=== PATIENT | female | born 1945 | race Caucasian/White ===

== ENCOUNTER → 2017-09-04 | Outpatient (CLI) | payer MEDICARE ==
[2017-09-05 14:23] LABS: Appearance,Urine Cloudy (Clear); Bilirubin,Urine Negative (Negative); Blood,Urine Small (Negative); Glucose,Urine (UA) Negative (Negative); Ketones,Urine Negative (Negative); Leukocyte Esterase,Urine Large (Negative); Mucus,Urine Rare /hpf; Nitrite,Urine Negative (Negative); PH, Urine 7.5 (5.0-8.0); Protein,Urine 1+ (Negative); RBC,Urine 24 /hpf (0-5); Urobilinogen,Urine <2.0 mg/dL (<2.0); WBC,Urine 22 /hpf (0-5)
[2017-09-18 08:11] LABS: Color,Urine Yellow
== END | disposition home or self-care (01) ==
LOC: LABWHC1 13:37
PROVIDERS: ATTEND General Practice
DX: N39.0 Urinary tract infection, site not specified (principal)
CPT/HCPCS: 81001; 87077; 87086; 87186

== ENCOUNTER 2018-11-30 21:46 | Emergency (ER) | payer MEDICARE ==
[2018-11-30 21:56] VITALS: RESP 18
[2018-11-30] MEDS ORDERED: methylPREDNISolone SOD SUCCI 125 MG/2 ML VIAL IV STA (22:38)
[2018-11-30] MEDS ORDERED: diphenhydrAMINE 50 MG/ML 1 ML VIAL IVP STA (22:38)
[2018-11-30] MEDS ORDERED: FAMOTIDINE 20 MG/2 ML VIAL IV STA (22:38)
--- NOTE | 2018-12-01 00:34 | ED ---
Allergic Reaction HPI - General Chief complaint: Allergic Reaction Stated complaint: Itchy hands Time Seen by Provider: 11/30/18 22:21 Source: patient, EMS Mode of arrival: EMS Limitations: no limitations - History of Present Illness Initial Comments: 73-year-old female patient presents to the emergency department today for evaluation of possible ALLERGIC reaction. Patient states around 9:30 this evening she began to have bilateral hand itching, tongue swelling, and periorbital swelling. Patient states that symptoms seemed to be worsening so she called EMS for transport here. Patient states that about a half an hour prior to symptom onset she did eat a banana. States she has had many bananas in her life with no reaction. She does state that she had to stop using Musa catheters due to latex. She denies taking any medication for her symptoms. She denies any shortness of breath, throat swelling, abdominal pain. Denies vomiting or diarrhea. Denies history of ALLERGIC reaction. Patient denies any recent rash, fever, chills, chest pain, constipation, back pain, numbness, tingling, dizziness, weakness, hematuria, dysuria, urinary urgency, urinary frequency, headache, visual changes, or any other complaints. - Related Data Home Medications Medication Instructions Recorded Confirmed Aspirin 81 mg PO DAILY 05/13/15 05/13/15 Baclofen [Lioresal] 20 mg PO QID 05/13/15 05/13/15 Furosemide [Lasix] 40 mg PO DAILY 05/16/15 05/16/15 Glatiramer Acetate [Copaxone] 40 mg SQ DIRECTED 05/16/15 05/16/15 Previous Rx's Medication Instructions Recorded Folic Acid 1 mg PO DAILY@1200 #30 tab 05/17/15 Insulin Glargine,Hum.rec.anlog 50 units SQ HS #0 05/17/15 [Lantus Solostar] Levofloxacin [Levaquin] 750 mg PO DAILY #5 tab 05/17/15 Multivitamins, Thera [Multivitamin 1 each PO DAILY@1200 #30 tab 05/17/15 (formulary)] Thiamine [Vitamin B-1] 100 mg PO DAILY@1200 #30 tab 05/17/15 Famotidine [Pepcid] 20 mg PO DAILY #3 tablet 12/01/18 predniSONE 50 mg PO DAILY #3 tab 12/01/18 Allergies Allergy/AdvReac Type Severity Reaction Status Date / Time No Known Allergies Allergy Verified 11/30/18 21:56 Review of Systems ROS Statement: Those systems with pertinent positive or pertinent negative responses have been documented in the HPI. ROS Other: All systems not noted in ROS Statement are negative. Past Medical History Past Medical History: Diabetes Mellitus, Hypertension, Musculoskeletal Disorder, Neurologic Disorder, Osteoarthritis (OA), Pneumonia, Skin Disorder Additional Past Medical History / Comment(s): 05/13/15 Pt presented to [facility] ER via EMS with syncopy vs near syncopy at home witnessed by spouse who called EMS. By the time EMS got there symptoms pretty much were resolved. Pt's sugar was slightly low. Pt is being admitted with clinical impression of AMS, UTI and syncopy. Other HX: MS, atonic bladder-self caths but lately just leaving catheter in place, IDDM type II, pneumonia 2010, psoriasis, stasis dematitis, osteoporosis, fatty liver, occasional lower leg edema. History of Any Multi-Drug Resistant Organisms: None Reported Past Surgical History: Appendectomy, Cholecystectomy, Tubal Ligation Past Anesthesia/Blood Transfusion Reactions: No Reported Reaction Past Psychological History: No Psychological Hx Reported Smoking Status: Former smoker Past Alcohol Use History: None Reported Past Drug Use History: None Reported - Past Family History Mother Family Medical History: Coronary Artery Disease (CAD) Additional Family Medical History / Comment(s): Mother had heart problems and at age 79. Father Family Medical History: No Reported History Additional Family Medical History / Comment(s): Father lived to be 105. General Exam Limitations: no limitations General appearance: alert, in no apparent distress, other (This is a well- developed, well-nourished elderly female patient in no acute distress. Vital signs upon presentation are temperature 98.0F, pulse 96, respirations 18, blood pressure 121/89, pulse ox 96% on room air.) Eye exam: Present: PERRL, EOMI, periorbital swelling. Absent: scleral icterus, conjunctival injection ENT exam: Present: normal oropharynx, mucous membranes moist, other (Tongue swelling. No uvular or pharyngeal edema noted). Absent: normal exam Neck exam: Present: normal inspection. Absent: tenderness, meningismus, lymphadenopathy Respiratory exam: Present: normal lung sounds bilaterally. Absent: respiratory distress, wheezes, rales, rhonchi, stridor Cardiovascular Exam: Present: regular rate, normal rhythm, normal heart sounds. Absent: systolic murmur, diastolic murmur, rubs, gallop, clicks GI/Abdominal exam: Present: soft, normal bowel sounds. Absent: distended, tenderness, guarding, rebound, rigid Extremities exam: Present: normal inspection, full ROM, normal capillary refill. Absent: tenderness, pedal edema, joint swelling, calf tenderness Neurological exam: Present: alert, oriented X3, CN II-XII intact Psychiatric exam: Present: normal affect, normal mood Skin exam: Present: warm, dry, intact, normal color. Absent: rash Course Vital Signs 11/30/18 11/30/18 12/01/18 21:52 22:52 00:55 Temperature 98.0 F 98.2 F Pulse Rate 96 74 85 Respiratory 18 18 18 Rate Blood Pressure 121/89 122/71 O2 Sat by Pulse 96 97 98 Oximetry 12/01/18 01:17 Temperature 98.0 F Pulse Rate 99 Respiratory 18 Rate Blood Pressure 136/96 O2 Sat by Pulse 98 Oximetry Medical Decision Making - Medical Decision Making 73-year-old female patient presents to the emergency department today for evaluation of possible ALLERGIC reaction. Symptoms included periorbital swelling, tongue swelling, and hand itching. Physical examination did reveal periorbital edema, enlarged tongue. Hand exam was unremarkable. Lungs are clear to auscultation with good air movement. She is not having abdominal pain or shortness of breath. She was given IV Solu-Medrol, Benadryl, and Pepcid. She is monitored. Upon reevaluation she does report improvement of symptoms. She does feel comfortable being discharged home at this time. She'll be given prescription for prednisone and Pepcid. She is instructed take Benadryl every 6 hours as needed. She is instructed to follow-up with her primary care physician for recheck Sunday. Return parameters were discussed in detail. She verbalizes understanding and agrees with this plan. Disposition Clinical Impression: Allergic reaction Disposition: HOME SELF-CARE Condition: Good Instructions (If sedation given, give patient instructions): General Allergic Reaction (ED) Additional Instructions: Complete medications as directed. Your prescriptions were sent to [facility] on [address] Take benadryl 25-50mg every 6 hours as needed. Follow-up with your primary care physician for recheck in 1-2 days. Return to the emergency department immediately for any new, worsening, or concerning symptoms. Prescriptions: Famotidine [Pepcid] 20 mg PO DAILY #3 tablet predniSONE 50 mg PO DAILY #3 tab Is patient prescribed a controlled substance at d/c from ED?: No Referrals: Sam Song MD [Primary Care Provider] - 1-2 days Time of Disposition: 00:34
[2018-12-01 01:18] VITALS: BP 136/96; PULSE 99; TEMP 98
== END 2018-12-01 01:18 | disposition home or self-care (01) ==
LOC: EC 21:46
DX: T78.40XA Allergy, unspecified, initial encounter (principal); L29.9 Pruritus, unspecified; R22.0 Localized swelling, mass and lump, head; I10 Essential (primary) hypertension; E11.9 Type 2 diabetes mellitus without complications; Z79.82 Long term (current) use of aspirin; Z79.899 Other long term (current) drug therapy; Z87.891 Personal history of nicotine dependence
CPT/HCPCS: 99283; 96374; 96375 ×2; J1200; J2930

== ENCOUNTER 2023-03-09 12:35 | Inpatient (IN) | payer MEDICARE ==
[2023-03-09] MEDS ORDERED: SODIUM CHLORIDE 0.9% 1,000 ML IV STA (12:59)
[2023-03-09] MEDS ORDERED: HYDROmorphone 0.5 MG/0.5 ML SYRINGE IVP STA (12:59)
[2023-03-09 13:26] LABS: HCT 36.8 % (34.0-46.0); HGB 12.9 gm/dL (11.4-16.0); MCH 33.4 pg (25.0-35.0); MCHC 35.1 g/dL (31.0-37.0); MCV 95.3 fL (80.0-100.0); Mean Platelet Volume 7.6; Platelet Count 262 k/uL (150-450); RBC 3.87 m/uL (3.80-5.40); RDW 11.9 % (11.5-15.5); WBC 9.9 k/uL (3.8-10.6)
--- NOTE | 2023-03-09 13:39 | ED ---
Skin/Abscess/FB HPI - General Chief complaint: Skin/Abscess/Foreign Body Stated complaint: FOOT WOUND Time Seen by Provider: 03/09/23 12:52 Source: patient, EMS, RN notes reviewed Mode of arrival: EMS Limitations: no limitations - History of Present Illness Initial comments: Patient is a 77 year old female presenting to the ER via EMS with a chief compla int of foot wound. Patient reports a history of MS and DM. She states she noticed this wound on her left heel about 1 week ago. Denies any trauma or blisters. She woke up about 4 days ago and noticed it was bleeding. Patient has been unable to get the bleeding under control since. She reports multiple blisters on the calfs. Denies fevers, chills, nightswerats, chest pain, shortness of breath, or abdominal pain. - Related Data Home Medications Medication Instructions Recorded Confirmed Baclofen [Lioresal] 20 mg PO QID PRN 05/13/15 03/09/23 Aspirin EC [Ecotrin Low Dose] 81 mg PO DAILY 03/09/23 03/09/23 Atorvastatin [Lipitor] 10 mg PO DAILY 03/09/23 03/09/23 Cyanocobalamin (Vitamin B-12) 1,000 mcg PO DAILY 03/09/23 03/09/23 [Vitamin B-12] Docusate [Colace] 100 mg PO DAILY 03/09/23 03/09/23 HYDROcodone/APAP 5-325MG [[place] 1 tab PO Q6H PRN 03/09/23 03/09/23 5-325] Insulin Glargine,Hum.rec.anlog 18 units SQ HS PRN 03/09/23 03/09/23 [Lantus Solostar Pen] Allergies Allergy/AdvReac Type Severity Reaction Status Date / Time No Known Allergies Allergy Verified 03/09/23 15:49 Review of Systems ROS Statement: Those systems with pertinent positive or pertinent negative responses have been documented in the HPI. ROS Other: All systems not noted in ROS Statement are negative. Past Medical History Past Medical History: Diabetes Mellitus, Hypertension, Musculoskeletal Disorder, Neurologic Disorder, Osteoarthritis (OA), Pneumonia, Skin Disorder Additional Past Medical History / Comment(s): 05/13/15 Pt presented to [facility] ER via EMS with syncopy vs near syncopy at home witnessed by spouse who called EMS. By the time EMS got there symptoms pretty much were resolved. Pt's sugar was slightly low. Pt is being admitted with clinical impression of AMS, UTI and s yncopy. Other HX: MS, atonic bladder-self caths but lately just leaving catheter in place, IDDM type II, pneumonia 2010, psoriasis, stasis dematitis, osteoporosis, fatty liver, occasional lower leg edema. History of Any Multi-Drug Resistant Organisms: None Reported Past Surgical History: Appendectomy, Cholecystectomy, Tubal Ligation Past Anesthesia/Blood Transfusion Reactions: No Reported Reaction Past Psychological History: No Psychological Hx Reported Smoking Status: Former smoker Past Alcohol Use History: None Reported Past Drug Use History: None Reported - Past Family History Mother Family Medical History: Coronary Artery Disease (CAD) Additional Family Medical History / Comment(s): Mother had heart problems and at age 79. Father Family Medical History: No Reported History Additional Family Medical History / Comment(s): Father lived to be 105. General Exam Limitations: no limitations General appearance: alert, in no apparent distress Respiratory exam: Present: normal lung sounds bilaterally. Absent: respiratory distress, wheezes, rales, rhonchi, stridor Cardiovascular Exam: Present: regular rate, normal rhythm, normal heart sounds. Absent: systolic murmur, diastolic murmur, rubs, gallop, clicks Extremities exam: Present: other (bleeding heel wound on right with surrounding erythema and induration. 1+ pitting edema bilaterally. left calf has multiple superficial blisters ) Neurological exam: Present: alert, oriented X3, CN II-XII intact Psychiatric exam: Present: normal affect, normal mood Skin exam: Present: warm, dry, intact, normal color. Absent: rash Course Vital Signs 03/09/23 12:38 Temperature 97.6 F Pulse Rate 104 H Respiratory 18 Rate Blood Pressure 144/74 O2 Sat by Pulse 100 Oximetry Medical Decision Making - Medical Decision Making Was pt. sent in by a medical professional or institution (, PA, [facility], urgent care, hospital, or correction...) When possible be specific @ -No Did you speak to anyone other than the patient for history (EMS, parent, family, police, friend...)? What history was obtained from this source @ -No Did you review nursing and triage notes (agree or disagree)? Why? @ -I reviewed and agree with nursing and triage notes Were old charts reviewed (outside hosp., previous admission, EMS record, old EKG, old radiological studies, urgent care reports/EKG's, correction records)? Report findings @ -No old charts were reviewed Differential Diagnosis (chest pain, altered mental status, abdominal pain women, abdominal pain men, vaginal bleeding, weakness, fever, dyspnea, syncope, headache, dizziness, GI bleed, back pain, seizure, CVA, palpatations, mental health, musculoskeletal)? @ -Differential Musculoskeletal: Muscular strain, contusion, ligament sprain, fracture, arthritis, septic arthritis, bursitis, cellulitis, muscle spasm, nerve compression, DVT, arterial occlusion, herpes zoster, electrolyte abnormality, tumor.... This is not meant to be in all inclusive list EKG interpreted by me (3pts min.). @ -None X-rays interpreted by me (1pt min.). @ -Right foot x-ray interpreted by me shows early minimal cortical erosion of calcaneous. Osteoporosis. CT interpreted by me (1pt min.). @ -None done U/S interpreted by me (1pt. min.). @ -None done What testing was considered but not performed or refused? (CT, X-rays, U/S, labs)? Why? @ -None What meds were considered but not given or refused? Why? @ -None Did you discuss the management of the patient with other professionals (professionals i.e. , PA, [facility]EC[facility] GROWER, lab, RT, psych nurse, social services designee, crime laboratory analyst, teacher, training and development officer, case managers)? Give summary @ -Yes, I discussed this case with Dr. Nava who accepted medical admission. He advised ID and vascular consultation. Was smoking cessation discussed for >3mins.? @ -No Was critical care preformed (if so, how long)? @ -No Were there social determinants of health that impacted care today? How? (Home lessness, low income, unemployed, alcoholism, drug addiction, transportation, low edu. Level, literacy, decrease access to med. care, alf, rehab)? @ -No Was there de-escalation of care discussed even if they declined (Discuss DNR or withdrawal of care, Hospice)? DNR status @ -No What co-morbidities impacted this encounter? (DM, HTN, Smoking, COPD, CAD, Cancer, CVA, ARF, Chemo, Hep., AIDS, mental health diagnosis, sleep apnea, morbid obesity)? @ -DM and MS Was patient admitted / discharged? Hospital course, mention meds given and route, prescriptions, significant lab abnormalities, going to OR and other pertinent info. @ -Admitted. Patient is a 77 year old female presenting to the ER via EMS with a chief complaint of heel wound. Vitals stable. Patient had an actively bleeding wound to right heel with surrounding erythema and induration. Lower extremity was warm to touch. Labs obtained in the ER were unremarkable. X-ray of right foot is showing concerns for osteomyelitis. Patient received IV fluids and pain medication for symptom control with improvement. I discussed lab and imaging findings with the patient. Dr. Nava evaluated patient at bedside and accepted medical admission. Patient will be started on IV Unasyn. ID and vascular consult. Patient will be admitted for further care. Patient expressed understanding and agreement with care Undiagnosed new problem with uncertain prognosis? @ -No Drug Therapy requiring intensive monitoring for toxicity (Heparin, Nitro, Insulin, Cardizem)? @ -No Were any procedures done? @ -No Diagnosis/symptom? @ -Heel wound/osteomyelitis Acute, or Chronic, or Acute on Chronic? @ -Acute Uncomplicated (without systemic symptoms) or Complicated (systemic symptoms)? @ -Uncomplicated Side effects of treatment? @ -No Exacerbation, Progression, or Severe Exacerbation? @ -No Poses a threat to life or bodily function? How? (Chest pain, USA, ID, pneumonia, PE, COPD, DKA, ARF, appy, cholecystitis, CVA, Diverticulitis, Homicidal, Suicidal, threat to staff... and all critical care pts) @ -No - Lab Data Result diagrams: 03/09/23 13:06 03/09/23 13:06 Lab Results 03/09/23 03/09/23 03/09/23 Range/Units 13:06 13:06 13:06 WBC 9.9 (3.8-10.6) k/uL RBC 3.87 (3.80-5.40) m/uL Hgb 12.9 (11.4-16.0) gm/dL Hct 36.8 (34.0-46.0) % MCV 95.3 (80.0-100.0) fL MCH 33.4 (25.0-35.0) pg MCHC 35.1 (31.0-37.0) g/dL RDW 11.9 (11.5-15.5) % Plt Count 262 (150-450) k/uL MPV 7.6 Sodium 137 (137-145) mmol/L Potassium 4.0 (3.5-5.1) mmol/L Chloride 97 L (98-107) mmol/L Carbon Dioxide 27 (22-30) mmol/L Anion Gap 13 mmol/L BUN 28 H (7-17) mg/dL Creatinine 0.52 (0.52-1.04) mg/dL Est GFR (CKD-EPI)AfAm >90 (>60 ml/min/1.73 sqM) Est GFR (CKD-EPI)NonAf >90 (>60 ml/min/1.73 sqM) Glucose 299 H (74-99) mg/dL Plasma Lactic Acid Yohannes 1.6 (0.7-2.0) mmol/L Calcium 8.9 (8.4-10.2) mg/dL Total Bilirubin 0.7 (0.2-1.3) mg/dL AST 24 (14-36) U/L ALT 18 (4-34) U/L Alkaline Phosphatase 77 (38-126) U/L Total Protein 7.0 (6.3-8.2) g/dL Albumin 3.6 (3.5-5.0) g/dL - Radiology Data Radiology results: report reviewed, image reviewed Disposition Clinical Impression: Osteomyelitis, Open wound of heel Disposition: ADMITTED IP TO THIS [facility] Condition: Stable Time of Disposition: 15:12
[2023-03-09 13:41] LABS: ALT 18 U/L (4-34); AST 24 U/L (14-36); African American GFR (CKD) >90 (>60 ml/min/1.73 sqM); Albumin 3.6 g/dL (3.5-5.0); Alkaline Phosphatase 77 U/L (38-126); Anion Gap 13 mmol/L; Blood Urea Nitrogen 28 mg/dL (7-17); Calcium 8.9 mg/dL (8.4-10.2); Carbon Dioxide 27 mmol/L (22-30); Chloride 97 mmol/L (98-107); Glucose 299 mg/dL (74-99); Non-African American GFR(CKD) >90 (>60 ml/min/1.73 sqM); Sodium 137 mmol/L (137-145); Total Bilirubin 0.7 mg/dL (0.2-1.3)
--- NOTE | 2023-03-09 14:06 | XR ---
EXAMINATION TYPE: XR foot complete RT DATE OF EXAM: 03/09/2023 COMPARISON: None HISTORY: Wound on heel TECHNIQUE: 3 view right foot FINDINGS: Structures are osteoporotic. No displaced fractures are evident. Radiopaque densities over the plantar aspect of the foot. Prominent soft tissue swelling is present. There is some poor visuali zation of the cortex at the inferior anterior calcaneus. Early osteomyelitis is not excluded this lev el. Three-phase bone scan could be performed for suspicion suspicion of osteomyelitis. IMPRESSION: 1. No acute fractures evident. 2. Early minimal cortical erosion of the anterior cortex is not excluded. Early osteomyelitis should be considered. 3. Osteoporosis
[2023-03-09] MEDS ORDERED: NALOXONE 0.4 MG/ML 1 ML VIAL IV PRN (14:59)
[2023-03-09] MEDS ORDERED: AMPICILLIN-SULBACTAM 3 GM in SODIUM CHLORIDE 0.9% 100 ML IVPB STA (15:02)
[2023-03-09] MEDS ORDERED: METOCLOPRAMIDE 5 MG/ML 2 ML VIAL IVP STA (15:02)
[2023-03-09] MEDS: SODIUM CHLORIDE 0.9% 1,000 ML IV SCH (16:14)
[2023-03-09] MEDS: HYDROmorphone 0.5 MG/0.5 ML SYRINGE IVP PRN (20:31)
[2023-03-09] MEDS ORDERED: NON FORMULARY DRUG (Insulin Glargine,Hum.Rec.Anlog [Lantus Solostar Pen] 100 UNIT/ML Each) SQ PRN (20:52)
[2023-03-09] MEDS ORDERED: DEXTROSE 50% SYRINGE 50 ML IVP PRN ×2 (20:53)
--- NOTE | 2023-03-09 21:22 | P.CONS ---
History of Present Illness - Reason for Consult Consult date: 03/09/23 Osteomyelitis Requesting physician: Blanca Hurley - Chief Complaint Heel wound x days - History of Present Illness Patient is a 77-year-old female with a past medical history significant for diabetes mellitus hypertension MS, osteoarthritis patient has been brought into the ER by the EMS when they were called into the hospital for the patient having a wound on her right heel apparently this has been getting worse for the last 1 week patient has complaining of increasing pain swelling redness to the right heel that has been extending to the right foot area apparently started with a blister and noticed to having some bleeding with the symptoms the patient was brought into the hospital on arrival to the ER the patient was afebrile and the patient denies having any fever or chills patient was not not hypoxic or hypotensive mild tachycardia white count of 9.9 creatinine 0.52 electrolytes were normal liver enzymes are normal patient did have a x-ray of the foot no acute fractures minimal cortical erosion of the anterior cortex is noted question of osteomyelitis patient got a dose of Unasyn admitted to hospital infectious disease was consulted for further management of antibiotic therapy Review of Systems Positive point and negatives has been mentioned in the HPI, complete review of systems was performed and all other systems are negative Past Medical History Past Medical History: Diabetes Mellitus, Hypertension, Musculoskeletal Disorder, Neurologic Disorder, Osteoarthritis (OA), Pneumonia, Skin Disorder Additional Past Medical History / Comment(s): 05/13/15 Pt presented to [facility] ER via EMS with syncopy vs near syncopy at home witnessed by spouse who called EMS. By the time EMS got there symptoms pretty much were resolved. Pt's sugar was slightly low. Pt is being admitted with clinical impression of AMS, UTI and syncopy. Other HX: MS, atonic bladder-self caths but lately just leaving catheter in place, IDDM type II, pneumonia 2010, psoriasis, stasis dematitis, osteoporosis, fatty liver, occasional lower leg edema. History of Any Multi-Drug Resistant Organisms: None Reported Past Surgical History: Appendectomy, Cholecystectomy, Tubal Ligation Past Anesthesia/Blood Transfusion Reactions: No Reported Reaction Past Psychological History: No Psychological Hx Reported Smoking Status: Former smoker Past Alcohol Use History: None Reported Past Drug Use History: None Reported - Past Family History Mother Family Medical History: Coronary Artery Disease (CAD) Additional Family Medical History / Comment(s): Mother had heart problems and at age 79. Father Family Medical History: No Reported History Additional Family Medical History / Comment(s): Father lived to be 105. Medications and Allergies Home Medications Medication Instructions Recorded Confirmed Type Baclofen [Lioresal] 20 mg PO QID PRN 05/13/15 03/09/23 History Aspirin EC [Ecotrin Low Dose] 81 mg PO DAILY 03/09/23 03/09/23 History Atorvastatin [Lipitor] 10 mg PO DAILY 03/09/23 03/09/23 History Cyanocobalamin (Vitamin B-12) 1,000 mcg PO DAILY 03/09/23 03/09/23 History [Vitamin B-12] Docusate [Colace] 100 mg PO DAILY 03/09/23 03/09/23 History HYDROcodone/APAP 5-325MG [[place] 1 tab PO Q6H PRN 03/09/23 03/09/23 History 5-325] Insulin Glargine,Hum.rec.anlog 18 units SQ HS PRN 03/09/23 03/09/23 History [Lantus Solostar Pen] Amoxic-Pot Clav 875-125Mg 1 tab PO Q12HR 7 Days #14 tab 03/14/23 Rx [Augmentin 875-125] Sulfamethox-Tmp 800-160Mg [Bactrim 1 tab PO Q12HR 7 Days #14 tab 03/14/23 Rx DS 800-160 mg] Allergies Allergy/AdvReac Type Severity Reaction Status Date / Time No Known Allergies Allergy Verified 03/09/23 15:49 Physical Exam Vitals: Vital Signs Temp Pulse Resp BP Pulse Ox 03/09/23 12:38 97.6 F 104 H 18 144/74 100 Intake and Output 03/09/23 03/09/23 03/09/23 06:59 14:59 22:59 Other: Weight 77.111 kg GENERAL DESCRIPTION: Elderly female lying in bed, no distress. No tachypnea or accessory muscle of respiration use. HEENT: Shows Pallor , no scleral icterus. Oral mucous membrane is dry. No pharyngeal erythema or thrush NECK: Trachea central, no thyromegaly. LUNGS: Unlabored breathing. Clear to auscultation anteriorly. No wheeze or crackle. HEART: S1, S2, regular rate and rhythm. No loud murmur ABDOMEN: Soft, no tenderness , guarding or rigidity, no organomegaly EXTREMITIES: Right heel wound did have an area of skin necrosis with surrounding swelling redness but no foul-smelling drainage SKIN: No rash, no masses palpable. NEUROLOGICAL: The patient is awake, alert, oriented x3, mood and affect normal. Results CBC & Chem 7: 03/12/23 08:36 03/12/23 08:36 Labs: Abnormal Lab Results - Last 24 Hours (Table) 03/09/23 Range/Units 13:06 Chloride 97 L (98-107) mmol/L BUN 28 H (7-17) mg/dL Glucose 299 H (74-99) mg/dL Assessment and Plan (1) Cellulitis of right heel Status: Acute Code(s): L03.115 - CELLULITIS OF RIGHT LOWER LIMB SNOMED Code(s): 20605970 (2) Open wound of heel Status: Acute Code(s): S91.309A - UNSPECIFIED OPEN WOUND, UNSPECIFIED FOOT, INITIAL ENCOUNTER SNOMED Code(s): 621146702 Plan: 1patient was in the hospital with worsening wound to the right heel area which is more likely a pressure ulcer unstageable at this time necrotic tissue and s urrounding redness concerning for secondary cellulitis with the x-ray showing some cortical erosion however did not mention the bones where there was calcaneus or a different 1 and extremity to be reviewed with radiologist 2-we will check inflammatory markers 3-local wound care with [facility] followed by moist dressing change daily 4-Unasyn 3 g every 6 hours while awaiting further workup to be completed 5keep the area of the pressure We will follow on clinical condition and cultures to further adjust medication if needed Thank you for this consultation we will follow the patient along with you Dictation was produced using [employer] dictation software. please excuse any grammatical, word or spelling errors. Time with Patient: Greater than 30
[2023-03-09 22:22] LABS: Glucose,Whole Blood 189 mg/dL (70-110)
--- NOTE | 2023-03-09 22:26 | HP ---
HISTORY AND PHYSICAL CHIEF COMPLAINT: Pain and swelling of the right heel. HISTORY OF PRESENT ILLNESS: This is a 77-year-old woman with a past medical history of multiple medical problems including diabetes mellitus, multiple sclerosis, noted to have right heel redness and ulcer and wound also. The wound started about 1 week ago, and there was some bleeding about 4 days ago and the patient came to [facility], was admitted for further evaluation and treatment. X-ray showed suspicion of osteomyelitis. PAST MEDICAL HISTORY: Diabetes mellitus, multiple sclerosis. Rest of the chart and rest of the history is also reviewed. HOME MEDICATIONS: Reviewed include prednisone. Doses reviewed. ALLERGIES: None. FAMILY HISTORY: History of coronary artery disease in the family. SOCIAL HISTORY: Previous history of smoking. The patient is wheelchair-bound. REVIEW OF SYSTEMS: A 14-point review is negative except as mentioned earlier. PHYSICAL EXAMINATION: VITAL SIGNS: Pulse is 104, blood pressure 140/76, respirations 18. HEENT: Conjunctivae normal. NECK: No JVD. CARDIOVASCULAR: S1, S2. RESPIRATIONS: Breath sounds diminished at the bases. ABDOMEN: Soft. LEGS: Significant erythema and tenderness in the necrotic area of the skin of the right heel present. NERVOUS SYSTEM: Diffusely weak with some contractures. SKIN: As mentioned earlier. LABORATORY DATA: Reviewed. ASSESSMENT: 1. Right heel wound diabetic ulcer and possible rule out osteomyelitis. 2. Multiple sclerosis with complications with contractures. 3. Diabetes mellitus, type 2. 4. Hypertension. 5. History of degenerative joint disease. 6. History of pneumonia. 7. Multiple complex medical issues. RECOMMENDATIONS AND DISCUSSION: This is a 77-year-old woman, who presented with multiple complex medical issues, we will monitor the patient closely. I will initiate broad-spectrum IV antibiotics in the form of Unasyn. Otherwise, Vascular and Infectious Disease evaluation, possible debridement. DVT prophylaxis. Obtain cultures. Recommend repeat labs and I would also recommend bone scan to complete the workup. Further recommendations to follow. See orders for further details. MMODL / IJN: [id number] /
[2023-03-09] MEDS: HEPARIN SODIUM,PORCINE 5,000 UNIT/ML 1 ML VIAL SQ SCH (22:28)
[2023-03-09] MEDS: INSULIN ASPART (NovoLOG) 100 UNIT/ML VIAL SQ SCH (22:28)
[2023-03-09] MEDS: HYDROcodone/APAP 5-325MG 1 EACH TAB PO PRN (22:28)
[2023-03-10] MEDS: BACLOFEN 10 MG TAB PO PRN ×2 (00:49→22:06)
[2023-03-10] MEDS: AMPICILLIN-SULBACTAM 3 GM in SODIUM CHLORIDE 0.9% 100 ML IVPB SCH ×4 (00:49→17:30)
[2023-03-10] MEDS: HYDROmorphone 0.5 MG/0.5 ML SYRINGE IVP PRN (02:30)
[2023-03-10] MEDS: SODIUM CHLORIDE 0.9% 1,000 ML IV SCH ×2 (06:45→17:42)
[2023-03-10 07:07] LABS: Glucose,Whole Blood 165 mg/dL (70-110)
[2023-03-10] MEDS: HYDROcodone/APAP 5-325MG 1 EACH TAB PO PRN (07:15)
[2023-03-10] MEDS: INSULIN ASPART (NovoLOG) 100 UNIT/ML VIAL SQ SCH ×4 (07:16→21:23)
[2023-03-10] MEDS: HEPARIN SODIUM,PORCINE 5,000 UNIT/ML 1 ML VIAL SQ SCH ×2 (09:07→21:36)
[2023-03-10] MEDS: ATORVASTATIN 10 MG TAB PO SCH (09:07)
[2023-03-10] MEDS: CYANOCOBALAMIN 500 MCG TAB PO SCH (09:07)
[2023-03-10] MEDS: DOCUSATE 100 MG CAP PO SCH (09:07)
[2023-03-10 10:12] LABS: Basophils # (A) 0.04 X 10*3/uL (0.00-0.10); Basophils % (A) 0.6 %; Eosinophils # (A) 0.12 X 10*3/uL (0.04-0.35); Eosinophils % (A) 1.7 %; HCT 32.1 % (37.2-46.3); HGB 10.4 g/dL (12.0-15.0); Lymphocytes # (A) 1.78 X 10*3/uL (0.90-5.00); Lymphocytes % (A) 25.6 %; MCH 31.5 pg (27.0-32.0); MCHC 32.4 g/dL (32.0-37.0); MCV 97.3 FL (80.0-97.0); Monocytes # (A) 0.84 X 10*3/uL (0.20-1.00); Monocytes % (A) 12.1 %; NRBC Per 100 WBC 0 X 10*3/uL (0.00-0.01); Neutrophils # (A) 4.16 X 10*3/uL (1.80-7.70); Neutrophils % (A) 59.9 %; Platelet Count 226 X 10*3/uL (140-440); WBC 6.95 X 10*3/uL (4.50-10.00)
[2023-03-10 10:19] LABS: Blood Urea Nitrogen 20.8 mg/dL (9.0-27.0); Chloride 106 mmol/L (96-109); Glucose 188 mg/dL (70-110); Potassium 3.7 mmol/L (3.5-5.5); Sodium 137 mmol/L (135-145)
[2023-03-10 10:20] LABS: Carbon Dioxide 23.8 mmol/L (21.6-31.8)
[2023-03-10 11:27] LABS: Glucose,Whole Blood 282 mg/dL (70-110)
[2023-03-10 13:57] VITALS: BMI 30.1
--- NOTE | 2023-03-10 14:45 | P.PN ---
Subjective Progress Note Date: 03/10/23 Patient is a 77-year-old female with a past medical history significant for diabetes mellitus hypertension MS, osteoarthritis patient has been brought into the ER by the EMS for evaluation of nonhealing wound to the right heel and bleeding. Patient did have x-ray of the foot concerning for mini mal cortical erosion of the anterior cortex did not mention the bones. On today's evaluation that is 03/10/2023 patient denies having any fever or any chills she is breathing comfortably on room air no chest pain shortness of breath or cough no nausea vomiting no abdominal pain or any worsening pain to the right heel wound Patient did have white count of 6.95, creatinine 0.4 Objective - Vital Signs Vital signs: Vital Signs Temp 97.8 F 03/10/23 07:22 Pulse 73 03/10/23 07:22 Resp 16 03/10/23 07:22 BP 125/58 03/10/23 07:22 Pulse Ox 98 03/10/23 07:22 FiO2 Intake & Output 03/09/23 03/10/23 03/10/23 18:59 06:59 18:59 Weight 77.111 kg 77.111 kg Other: Voiding Method External Catheter - Exam GENERAL DESCRIPTION: An elderly female lying in bed in no distress RESPIRATORY SYSTEM: Unlabored breathing , decreased breath sounds at bases HEART: S1 S2 regular rate and rhythm , ABDOMEN: Soft , no tenderness EXTREMITIES: Right heel wound is currently dressed no drainage on the dressing - Labs CBC & Chem 7: 03/10/23 04:04 03/10/23 04:04 Labs: Abnormal Lab Results - Last 24 Hours (Table) 03/09/23 03/09/23 03/10/23 Range/Units 13:06 22:21 04:04 RBC 3.30 L (4.10-5.20) X 10*6/uL Hgb 10.4 L (12.0-15.0) g/dL Hct 32.1 L (37.2-46.3) % MCV 97.3 H (80.0-97.0) FL Chloride 97 L (98-107) mmol/L BUN 28 H (7-17) mg/dL Creatinine (0.6-1.5) mg/dL BUN/Creatinine Ratio (12.00-20.00) Ratio Glucose 299 H (74-99) mg/dL POC Glucose (mg/dL) 189 H (70-110) mg/dL Calcium (8.7-10.3) mg/dL 03/10/23 03/10/23 03/10/23 Range/Units 04:04 07:06 11:23 RBC (4.10-5.20) X 10*6/uL Hgb (12.0-15.0) g/dL Hct (37.2-46.3) % MCV (80.0-97.0) FL Chloride (98-107) mmol/L BUN (7-17) mg/dL Creatinine 0.4 L (0.6-1.5) mg/dL BUN/Creatinine Ratio 52.00 H (12.00-20.00) Ratio Glucose 188 H (74-99) mg/dL POC Glucose (mg/dL) 165 H 282 H (70-110) mg/dL Calcium 8.0 L (8.7-10.3) mg/dL Assessment and Plan (1) Open wound of heel Current Visit: Yes Status: Acute Code(s): S91.309A - UNSPECIFIED OPEN WOUND, UNSPECIFIED FOOT, INITIAL ENCOUNTER SNOMED Code(s): 070334855 (2) Cellulitis of right heel Current Visit: Yes Status: Acute Code(s): L03.115 - CELLULITIS OF RIGHT LOWER LIMB SNOMED Code(s): 05934206 Plan: 1patient was in the hospital with worsening wound to the right heel area which is more likely a pressure ulcer unstageable at this time necrotic tissue and surrounding redness concerning for secondary cellulitis with the x-ray showing some cortical erosion however did not mention the bones where there was calcaneus or a different 1 and extremity to be reviewed with radiologist 2-currently waiting for inflammatory markers 3-local wound care with Medihoney followed by moist dressing change daily, await vascular surgery debridement and deep culture 4-patient to Unasyn 3 g every 6 hours and keep the area of the pressure Dictation was produced using [employer] dictation software. please excuse any grammatical, word or spelling errors. Time with Patient: Less than 30
[2023-03-10] MEDS: ASPIRIN 81 MG PO SCH (15:18)
--- NOTE | 2023-03-10 15:34 | P.GSCN ---
History of Present Illness Consult date: 03/10/23 History of present illness: Kiana is a 77-year-old female with past medical history includes diabetes, hypertension, MS, arthritis who is brought to the ER due to concern of wound on her right heel and swelling into her leg with some blistering of the skin. Family at the bedside states this was not there earlier this week. The patient has a home healthcare nurse who comes out routinely for bleeding and monitoring. The is usually does a good job trying to keep this offloaded and keep her from having pressure on the bed utilizing pillows. Patient states there is some pain at the heel but no significant complaints otherwise. She denies any fevers, chills, nausea, vomiting or issues otherwise. Past Medical History Past Medical History: Diabetes Mellitus, Hypertension, Musculoskeletal Disorder, Neurologic Disorder, Osteoarthritis (OA), Pneumonia, Skin Disorder Additional Past Medical History / Comment(s): 05/13/15 Pt presented to [facility] ER via EMS with syncopy vs near syncopy at home witnessed by spouse who called EMS. By the time EMS got there symptoms pretty much were resolved. Pt's sugar was slightly low. Pt is being admitted with clinical impression of AMS, UTI and syncopy. Other HX: MS, atonic bladder-self caths but lately just leaving catheter in place, IDDM type II, pneumonia 2010, psoriasis, stasis dematitis, osteoporosis, fatty liver, occasional lower leg edema. History of Any Multi-Drug Resistant Organisms: None Reported Past Surgical History: Appendectomy, Cholecystectomy, Tubal Ligation Past Anesthesia/Blood Transfusion Reactions: No Reported Reaction Past Psychological History: No Psychological Hx Reported Smoking Status: Former smoker Past Alcohol Use History: None Reported Past Drug Use History: None Reported - Past Family History Mother Family Medical History: Coronary Artery Disease (CAD) Additional Family Medical History / Comment(s): Mother had heart problems and at age 79. Father Family Medical History: No Reported History Additional Family Medical History / Comment(s): Father lived to be 105. Medications and Allergies Home Medications Medication Instructions Recorded Confirmed Type Baclofen [Lioresal] 20 mg PO QID PRN 05/13/15 03/09/23 History Aspirin EC [Ecotrin Low Dose] 81 mg PO DAILY 03/09/23 03/09/23 History Atorvastatin [Lipitor] 10 mg PO DAILY 03/09/23 03/09/23 History Cyanocobalamin (Vitamin B-12) 1,000 mcg PO DAILY 03/09/23 03/09/23 History [Vitamin B-12] Docusate [Colace] 100 mg PO DAILY 03/09/23 03/09/23 History HYDROcodone/APAP 5-325MG [Mars 1 tab PO Q6H PRN 03/09/23 03/09/23 History 5-325] Insulin Glargine,Hum.rec.anlog 18 units SQ HS PRN 03/09/23 03/09/23 History [Lantus Solostar Pen] Allergies Allergy/AdvReac Type Severity Reaction Status Date / Time No Known Allergies Allergy Verified 03/09/23 15:49 Surgical - Exam Vital Signs Temp Pulse Resp BP Pulse Ox 97.6 F 104 H 18 144/74 100 03/09/23 12:38 03/09/23 12:38 03/09/23 12:38 03/09/23 12:38 03/09/23 12:38 Gen. is a pleasant cooperative female laying in the bed, relatively contracted and unable to fully move. No acute distress. Right lower extremity with bullae previously popped. He'll is clean and dry. Portion of eschar is removed at the bedside. There is adequate appearing granulation tissue throughout. No evidence of tunneling tracking or drainage. Results X-rays reviewed. - Labs 03/10/23 04:04 03/10/23 04:04 Abnormal Lab Results - Last 24 Hours (Table) 03/09/23 03/10/23 03/10/23 Range/Units 22:21 04:04 04:04 RBC 3.30 L (4.10-5.20) X 10*6/uL Hgb 10.4 L (12.0-15.0) g/dL Hct 32.1 L (37.2-46.3) % MCV 97.3 H (80.0-97.0) FL Creatinine (0.6-1.5) mg/dL BUN/Creatinine Ratio (12.00-20.00) Ratio Glucose (70-110) mg/dL POC Glucose (mg/dL) 189 H (70-110) mg/dL Hemoglobin A1c 9.0 H (<=6.0) % Calcium (8.7-10.3) mg/dL 03/10/23 03/10/23 03/10/23 Range/Units 04:04 07:06 11:23 RBC (4.10-5.20) X 10*6/uL Hgb (12.0-15.0) g/dL Hct (37.2-46.3) % MCV (80.0-97.0) FL Creatinine 0.4 L (0.6-1.5) mg/dL BUN/Creatinine Ratio 52.00 H (12.00-20.00) Ratio Glucose 188 H (70-110) mg/dL POC Glucose (mg/dL) 165 H 282 H (70-110) mg/dL Hemoglobin A1c (<=6.0) % Calcium 8.0 L (8.7-10.3) mg/dL Diabetes panel 03/10/23 03/10/23 Range/Units 04:04 04:04 Sodium 137 (135-145) mmol/L Potassium 3.7 (3.5-5.5) mmol/L Chloride 106 (96-109) mmol/L Carbon Dioxide 23.8 (21.6-31.8) mmol/L BUN 20.8 (9.0-27.0) mg/dL Creatinine 0.4 L (0.6-1.5) mg/dL Glucose 188 H (70-110) mg/dL Hemoglobin A1c 9.0 H (<=6.0) % Calcium 8.0 L (8.7-10.3) mg/dL Calcium panel 03/10/23 Range/Units 04:04 Calcium 8.0 L (8.7-10.3) mg/dL Pituitary panel 03/10/23 Range/Units 04:04 Sodium 137 (135-145) mmol/L Potassium 3.7 (3.5-5.5) mmol/L Chloride 106 (96-109) mmol/L Carbon Dioxide 23.8 (21.6-31.8) mmol/L BUN 20.8 (9.0-27.0) mg/dL Creatinine 0.4 L (0.6-1.5) mg/dL Glucose 188 H (70-110) mg/dL Calcium 8.0 L (8.7-10.3) mg/dL Adrenal panel 03/10/23 Range/Units 04:04 Sodium 137 (135-145) mmol/L Potassium 3.7 (3.5-5.5) mmol/L Chloride 106 (96-109) mmol/L Carbon Dioxide 23.8 (21.6-31.8) mmol/L BUN 20.8 (9.0-27.0) mg/dL Creatinine 0.4 L (0.6-1.5) mg/dL Glucose 188 H (70-110) mg/dL Calcium 8.0 L (8.7-10.3) mg/dL Assessment and Plan Assessment: Right heel wound, right lower extremity wound, MS Plan: After review the images and the patient himself, I would doubt that there is truly osteomyelitis in this area. Continue with local wound care and offloading. Obtain medical boots for this. If there is concern continuing, would recommend a bone scan. Patient is nonambulatory and has difficulty with movement therefore this could be challenging, she does maintain palpable pedal pulses therefore I do believe she has every best chance at healing if offloading is managed
[2023-03-10 16:40] LABS: Glucose,Whole Blood 261 mg/dL (70-110)
[2023-03-10 20:50] LABS: Glucose,Whole Blood 160 mg/dL (70-110)
[2023-03-10] MEDS ORDERED: INSULIN DETEMIR (LEVEMIR) 100 UNIT/ML SYR SQ SCH (21:00)
[2023-03-10] MEDS: INSULIN DETEMIR (LEVEMIR) 100 UNIT/ML SYR SQ SCH (21:36)
--- NOTE | 2023-03-10 22:11 | PN ---
PROGRESS NOTE DATE OF SERVICE: 03/10/2023 SUBJECTIVE: This is a 77-year-old woman, who was admitted with right heel wound, is being evaluated for osteomyelitis. No chest pain. No palpitations. No fever. PHYSICAL EXAMINATION: VITAL SIGNS: Pulse 84, blood pressure 110/62, and respirations 16. CHEST: Clear to auscultation. ABDOMEN: Soft. EXTREMITIES: Right heel infection present. Accu-Cheks are noted. ASSESSMENT: 1. Right heel wound diabetic ulcer, rule out osteomyelitis. 2. Multiple sclerosis with complications with contractures. 3. Diabetes mellitus, type 2. 4. Hypertension. 5. History of degenerative joint disease. 6. History of pneumonia. 7. Multiple complex medical issues. RECOMMENDATIONS: I recommend to continue current management, continue symptomatic treatment. Monitor blood sugars closely. The patient is on Levemir 10. I would recommend to increase the dose slightly, antibiotics, bone scan. Guarded prognosis. Further recommendations to follow. See orders for details. MMODL / IJN: [id number] /
[2023-03-11] MEDS: AMPICILLIN-SULBACTAM 3 GM in SODIUM CHLORIDE 0.9% 100 ML IVPB SCH ×5 (01:05→23:38)
[2023-03-11] MEDS: SODIUM CHLORIDE 0.9% 1,000 ML IV SCH ×2 (05:20→23:42)
[2023-03-11 05:58] LABS: Glucose,Whole Blood 138 mg/dL (70-110)
[2023-03-11] MEDS: INSULIN ASPART (NovoLOG) 100 UNIT/ML VIAL SQ SCH ×4 (06:01→20:51)
[2023-03-11 08:10] LABS: African American GFR (CKD) >90 (>60 ml/min/1.73 sqM); Anion Gap 8 mmol/L; Blood Urea Nitrogen 16 mg/dL (7-17); C Reactive Protein 3.2 mg/dL (<1.0); Calcium 7.9 mg/dL (8.4-10.2); Carbon Dioxide 22 mmol/L (22-30); Chloride 106 mmol/L (98-107); Glucose 112 mg/dL (74-99); Non-African American GFR(CKD) >90 (>60 ml/min/1.73 sqM); Potassium 3.5 mmol/L (3.5-5.1); Sodium 136 mmol/L (137-145)
[2023-03-11] MEDS: ATORVASTATIN 10 MG TAB PO SCH (09:11)
[2023-03-11] MEDS: ASPIRIN 81 MG PO SCH (09:11)
[2023-03-11] MEDS: CYANOCOBALAMIN 500 MCG TAB PO SCH (09:12)
[2023-03-11] MEDS: HEPARIN SODIUM,PORCINE 5,000 UNIT/ML 1 ML VIAL SQ SCH ×2 (09:12→20:51)
[2023-03-11] MEDS: DOCUSATE 100 MG CAP PO SCH (09:12)
[2023-03-11 10:13] LABS: Basophils # (A) 0.05 X 10*3/uL (0.00-0.10); Basophils % (A) 0.7 %; Eosinophils # (A) 0.07 X 10*3/uL (0.04-0.35); Eosinophils % (A) 0.9 %; HGB 11.1 g/dL (12.0-15.0); Lymphocytes # (A) 1.58 X 10*3/uL (0.90-5.00); Lymphocytes % (A) 20.6 %; MCH 31.3 pg (27.0-32.0); MCHC 32.6 g/dL (32.0-37.0); MCV 95.8 FL (80.0-97.0); Mean Platelet Volume 10.8 FL (9.5-12.2); Monocytes # (A) 0.88 X 10*3/uL (0.20-1.00); Monocytes % (A) 11.5 %; NRBC Per 100 WBC 0 X 10*3/uL (0.00-0.01); Neutrophils # (A) 5.06 X 10*3/uL (1.80-7.70); Neutrophils % (A) 65.9 %; Platelet Count 235 X 10*3/uL (140-440); RBC 3.55 X 10*6/uL (4.10-5.20); RDW 11.9 % (11.5-14.5); WBC 7.67 X 10*3/uL (4.50-10.00)
[2023-03-11 10:25] LABS: Erythrocyte Sedimentation Rate 24 mm/Hr (0-30)
[2023-03-11 11:38] LABS: Glucose,Whole Blood 201 mg/dL (70-110)
[2023-03-11 16:19] LABS: Glucose,Whole Blood 163 mg/dL (70-110)
--- NOTE | 2023-03-11 16:57 | P.PN ---
Subjective Progress Note Date: 03/11/23 Principal diagnosis: Reason for follow-up is right heel wound and cellulitis Patient is a 77-year-old female with a past medical history significant for diabetes mellitus hypertension MS, osteoarthritis patient has been brought into the ER by the EMS for evaluation of nonhealing wound to the right heel and bleeding. Patient did have x-ray of the foot concerning for minimal cortical erosion of the anterior cortex did not mention the bones. On today's evaluation that is 03/11/2023, the patient remains to be afebrile, the patient is breathing comfortably on room air and the patient denies any shortness of breath, the patient denies chest pain or any cough , patient denies any nausea/vomiting abdominal pain or diarrhea, the patient denies any worsening pain to the right heel wound Patient did have white count of 7.67, creatinine 0.32 local culture growing Staph aureus and gram-negative Objective - Vital Signs Vital signs: Vital Signs Temp 98.0 F 03/11/23 13:59 Pulse 93 03/11/23 13:59 Resp 19 03/11/23 13:59 BP 109/59 03/11/23 13:59 Pulse Ox 95 03/11/23 13:59 FiO2 Intake & Output 03/10/23 03/11/23 03/11/23 18:59 06:59 18:59 Intake Total 1340 Output Total 350 1650 Balance -350 -310 Weight 77.111 kg Intake: Intake, IV Titration 1100 Amount Ampicillin-Sulbactam 3 gm 200 In Sodium Chloride 0.9% 100 ml @ 200 mls/hr IVPB Q6HR [facility] Rx#:[id number] Sodium Chloride 0.9% 1, 900 000 ml @ 75 mls/hr IV . [id number] [facility] Rx#:[id number] Oral 240 Output: Urine 350 1650 Other: Voiding Method External Catheter External Catheter External Catheter - Exam GENERAL DESCRIPTION: An elderly female lying in bed in no distress RESPIRATORY SYSTEM: Unlabored breathing , decreased breath sounds at bases HEART: S1 S2 regular rate and rhythm , ABDOMEN: Soft , no tenderness EXTREMITIES: Right heel wound with no slough tissue did have some bleeding patient also have a wound to the right lateral leg more likely pressure ulcer - Labs CBC & Chem 7: 03/11/23 06:15 03/11/23 06:15 Labs: Abnormal Lab Results - Last 24 Hours (Table) 03/10/23 03/11/23 03/11/23 Range/Units 20:49 05:56 06:15 RBC 3.55 L (4.10-5.20) X 10*6/uL Hgb 11.1 L (12.0-15.0) g/dL Hct 34.0 L (37.2-46.3) % Sodium (137-145) mmol/L Creatinine (0.52-1.04) mg/dL Glucose (74-99) mg/dL POC Glucose (mg/dL) 160 H 138 H (70-110) mg/dL Calcium (8.4-10.2) mg/dL C-Reactive Protein (<1.0) mg/dL 03/11/23 03/11/23 03/11/23 Range/Units 06:15 11:36 16:18 RBC (4.10-5.20) X 10*6/uL Hgb (12.0-15.0) g/dL Hct (37.2-46.3) % Sodium 136 L (137-145) mmol/L Creatinine 0.32 L (0.52-1.04) mg/dL Glucose 112 H (74-99) mg/dL POC Glucose (mg/dL) 201 H 163 H (70-110) mg/dL Calcium 7.9 L (8.4-10.2) mg/dL C-Reactive Protein 3.2 H (<1.0) mg/dL Microbiology - Last 24 Hours (Table) 03/09/23 13:06 Gram Stain - Preliminary Foot - Left Wound Culture - Preliminary Gram Neg Bacilli Presumptive Staph aureus 03/09/23 13:00 Blood Culture - Preliminary Blood 03/09/23 13:15 Blood Culture - Preliminary Blood Assessment and Plan (1) Open wound of heel Current Visit: Yes Status: Acute Code(s): S91.309A - UNSPECIFIED OPEN WOUND, UNSPECIFIED FOOT, INITIAL ENCOUNTER SNOMED Code(s): 049291646 (2) Cellulitis of right heel Current Visit: Yes Status: Acute Code(s): L03.115 - CELLULITIS OF RIGHT LOWER LIMB SNOMED Code(s): 58278512 Plan: 1patient was in the hospital with worsening wound to the right heel area which is more likely a pressure ulcer unstageable at this time necrotic tissue and surrounding redness concerning for secondary cellulitis with the x-ray showing some cortical erosion however did not mention the bones where there was calcaneus or a different 1 and extremity to be reviewed with radiologist 2-local culture growing Staph aureus and gram-negative with sensitivities pending 3-local wound care will be switched over to dry Aquacel silver dressing change every 48 hour keep the area of the pressure 4-patient to Unasyn 3 g every 6 hours while waiting for the culture to finalize Dictation was produced using [employer] dictation software. please excuse any grammatical, word or spelling errors. Time with Patient: Less than 30
--- NOTE | 2023-03-11 17:30 | XR ---
EXAM: XR chest 1V portable CLINICAL INDICATION:Female, 77 years old with history of chf; [facility] COMPARISON: None. TECHNIQUE: Chest single view. FINDINGS: Lines/tubes/devices: None. Extraneous densities over the chest can interfere with interpretation. Cardiomediastinum: Cardiac silhouette appears normal in size. Atherosclerotic calcifications of the aorta with mild tortuosity. Vasculature: No increased pulmonary vasculature. Lungs/pleura: Lungs appear hyperinflated with interstitial coarsening, findings suggestive of COPD/emphysema. Mild left basilar subsegmental atelectasis versus scarring with mild asymmetric elevation left hemidiaphra gm noted. No consolidation, sizeable effusion, or visible pneumothorax. Bones/soft tissues: Bony thorax appears grossly intact as seen. [place] right curvature of the upper dorsal spine suggesting scoliosis. Regional soft tissues appear unremarkable. IMPRESSION: COPD changes and mild left basilar scarring/atelectasis
[2023-03-11] MEDS: BACLOFEN 10 MG TAB PO PRN (18:17)
[2023-03-11 20:04] LABS: Glucose,Whole Blood 235 mg/dL (70-110)
[2023-03-11] MEDS: INSULIN DETEMIR (LEVEMIR) 100 UNIT/ML SYR SQ SCH (20:50)
[2023-03-12] MEDS: HYDROcodone/APAP 5-325MG 1 EACH TAB PO PRN ×2 (02:52→19:06)
[2023-03-12] MEDS: BACLOFEN 10 MG TAB PO PRN ×2 (04:37→14:35)
--- NOTE | 2023-03-12 04:50 | PN ---
PROGRESS NOTE DATE OF SERVICE: 03/11/2023 SUBJECTIVE: This is a 77-year-old woman, who was admitted with right heel ulcer. She is confused today. Vascular Surgery saw the patient today. No chest pain. No palpitation. PHYSICAL EXAMINATION: VITAL SIGNS: Pulse is 93, blood pressure n, and respirations 19. CHEST: Clear to auscultation. ABDOMEN: Soft. NERVOUS SYSTEM: Nonfocal. Foot wound infection present. LABORATORY DATA: Reviewed. ASSESSMENT: 1. Acute right heel wound diabetic ulcer, rule out osteomyelitis. 2. Multiple sclerosis with complications with contractures. 3. Diabetes mellitus, type 2. 4. Hypertension. 5. History of degenerative joint disease. 6. History of pneumonia. 7. History of multiple complex medical issues. RECOMMENDATIONS: Recommend to continue current medications, continue symptomatic treatment. I would also recommend a chest x-ray also for completion sake bone scan, antibiotics, further recommendations to follow. MMODL / IJN: [id number] / MTDSintia
[2023-03-12 05:58] LABS: Glucose,Whole Blood 70 mg/dL (70-110)
[2023-03-12] MEDS: INSULIN ASPART (NovoLOG) 100 UNIT/ML VIAL SQ SCH ×4 (06:17→20:28)
[2023-03-12] MEDS: AMPICILLIN-SULBACTAM 3 GM in SODIUM CHLORIDE 0.9% 100 ML IVPB SCH ×2 (06:26→12:06)
[2023-03-12] MEDS: HYDROmorphone 0.5 MG/0.5 ML SYRINGE IVP PRN (06:27)
[2023-03-12] MEDS: ASPIRIN 81 MG PO SCH (08:09)
[2023-03-12] MEDS: DOCUSATE 100 MG CAP PO SCH (08:09)
[2023-03-12] MEDS: CYANOCOBALAMIN 500 MCG TAB PO SCH (08:09)
[2023-03-12] MEDS: ATORVASTATIN 10 MG TAB PO SCH (08:09)
[2023-03-12] MEDS: HEPARIN SODIUM,PORCINE 5,000 UNIT/ML 1 ML VIAL SQ SCH ×2 (08:09→20:28)
[2023-03-12] MEDS: SODIUM CHLORIDE 0.9% 1,000 ML IV SCH (10:02)
--- NOTE | 2023-03-12 10:19 | P.PN ---
Subjective Progress Note Date: 03/12/23 Principal diagnosis: Pressure ulcers Patient seen and examined lying in bed. She has bilateral heel protectors on. No acute changes through the night. She is afebrile. Objective - Vital Signs Vital signs: Vital Signs Temp 98 F 03/12/23 02:00 Pulse 100 03/12/23 02:00 Resp 16 03/12/23 02:00 BP 122/75 03/12/23 02:00 Pulse Ox 97 03/12/23 02:00 FiO2 Intake & Output 03/11/23 03/12/23 03/12/23 18:59 06:59 18:59 Output Total 1000 650 Balance -1000 -650 Output: Urine 1000 650 Other: Voiding Method External Catheter - Exam General appearance: The patient is alert, oriented, appears in no acute distress. HET: Head is normocephalic and atraumatic. Neck: Supple. Heart: Regular. Lungs: Equal expansion, normal respiratory effort. Abdomen: Soft, nondistended. Extremities: Bilateral lower extremities with palpable DP pulses. Offloading heel boots in place. Right foot with dressing clean dry and intact. Neurological: Alert and oriented. - Labs CBC & Chem 7: 03/11/23 06:15 03/11/23 06:15 Labs: Abnormal Lab Results - Last 24 Hours (Table) 03/11/23 03/11/23 03/11/23 Range/Units 06:15 11:36 16:18 RBC 3.55 L (4.10-5.20) X 10*6/uL Hgb 11.1 L (12.0-15.0) g/dL Hct 34.0 L (37.2-46.3) % POC Glucose (mg/dL) 201 H 163 H (70-110) mg/dL 03/11/23 Range/Units 19:59 RBC (4.10-5.20) X 10*6/uL Hgb (12.0-15.0) g/dL Hct (37.2-46.3) % POC Glucose (mg/dL) 235 H (70-110) mg/dL Microbiology - Last 24 Hours (Table) 03/09/23 13:06 Gram Stain - Final Foot - Left Wound Culture - Final Escherichia coli Staphylococcus aureus Enterococcus faecalis 03/09/23 13:00 Blood Culture - Preliminary Blood 03/09/23 13:15 Blood Culture - Preliminary Blood Assessment and Plan Assessment: 1. Right heel wound, right lower extremity wound 2. Multiple sclerosis Plan: 1. Continue with local wound care 2. Continue with offloading with soft Medical boots, heel protectors 3. No indication for any surgical intervention Thank you for this consultation. The impression and plan of care has been dictated as directed. Dr. Musa I performed a history and examination of this patient, discussed the same with the dictator. I agree with the dictator's note ,documented as a scribe. Any additional findings or plans will be noted.
[2023-03-12 11:10] LABS: Basophils # (A) 0.06 X 10*3/uL (0.00-0.10); Basophils % (A) 0.7 %; Eosinophils # (A) 0.05 X 10*3/uL (0.04-0.35); Eosinophils % (A) 0.6 %; HCT 35.7 % (37.2-46.3); HGB 11.6 g/dL (12.0-15.0); Lymphocytes # (A) 1.36 X 10*3/uL (0.90-5.00); MCH 31.9 pg (27.0-32.0); MCHC 32.5 g/dL (32.0-37.0); MCV 98.1 FL (80.0-97.0); Mean Platelet Volume 10.5 FL (9.5-12.2); Monocytes # (A) 1.07 X 10*3/uL (0.20-1.00); Monocytes % (A) 12.6 %; NRBC Per 100 WBC 0 X 10*3/uL (0.00-0.01); Neutrophils # (A) 5.94 X 10*3/uL (1.80-7.70); Neutrophils % (A) 69.9 %; Platelet Count 272 X 10*3/uL (140-440); RBC 3.64 X 10*6/uL (4.10-5.20); RDW 12.1 % (11.5-14.5)
[2023-03-12 11:18] LABS: African American GFR (CKD) >90 (>60 ml/min/1.73 sqM); Anion Gap 6 mmol/L; Blood Urea Nitrogen 9 mg/dL (7-17); Calcium 8.3 mg/dL (8.4-10.2); Carbon Dioxide 27 mmol/L (22-30); Chloride 107 mmol/L (98-107); Glucose 97 mg/dL (74-99); Non-African American GFR(CKD) >90 (>60 ml/min/1.73 sqM); Potassium 3.6 mmol/L (3.5-5.1); Sodium 140 mmol/L (137-145)
[2023-03-12 11:43] LABS: Glucose,Whole Blood 286 mg/dL (70-110)
[2023-03-12] MEDS: PIPERACILLIN-TAZOBACTAM 3.375 GM in SODIUM CHLORIDE 0.9% 100 ML IVPB SCH (15:58)
[2023-03-12 16:39] LABS: Glucose,Whole Blood 263 mg/dL (70-110)
[2023-03-12 20:22] LABS: Glucose,Whole Blood 226 mg/dL (70-110)
[2023-03-12] MEDS: INSULIN DETEMIR (LEVEMIR) 100 UNIT/ML SYR SQ SCH (22:21)
[2023-03-13] MEDS: PIPERACILLIN-TAZOBACTAM 3.375 GM in SODIUM CHLORIDE 0.9% 100 ML IVPB SCH ×4 (01:05→23:51)
--- NOTE | 2023-03-13 06:37 | PN ---
PROGRESS NOTE DATE OF SERVICE: 03/12/2023 SUBJECTIVE: This is a 77-year-old woman who was admitted with acute right heel diabetic wound is being evaluated for any osteomyelitis. The patient on empiric antibiotics. No chest pain no palpitation. OBJECTIVE: VITAL SIGNS: Pulse is 81, blood pressure 126/60, respirations 20. CHEST: Clear. CARDIOVASCULAR: S1, S2. ABDOMEN: Soft. EXTREMITIES: Right heel infection present. LABORATORY DATA: Reviewed. ASSESSMENT: 1. Acute right knee wound infection with diabetic ulcer, rule out osteomyelitis. 2. Multiple sclerosis with complications and contractures. 3. Diabetes mellitus type 2. 4. Hypertension. 5. History of DJD. 6. History of pneumonia. 7. History of multiple complex medical issues. RECOMMENDATIONS: Recommended to continue current management, continue symptomatic treatment, otherwise at this time, IV antibiotics closely follow. The patient is on Unasyn closely with Infectious Disease and further recommendations to follow. Bone scan. Further recommendations to follow. MMODL / IJN: [id number] /
[2023-03-13 06:56] LABS: Glucose,Whole Blood 78 mg/dL (70-110)
[2023-03-13] MEDS: INSULIN ASPART (NovoLOG) 100 UNIT/ML VIAL SQ SCH ×4 (07:04→21:25)
[2023-03-13] MEDS: CYANOCOBALAMIN 500 MCG TAB PO SCH (09:13)
[2023-03-13] MEDS: ASPIRIN 81 MG PO SCH (09:13)
[2023-03-13] MEDS: DOCUSATE 100 MG CAP PO SCH (09:13)
[2023-03-13] MEDS: ATORVASTATIN 10 MG TAB PO SCH (09:13)
[2023-03-13] MEDS: HEPARIN SODIUM,PORCINE 5,000 UNIT/ML 1 ML VIAL SQ SCH ×2 (09:14→21:25)
--- NOTE | 2023-03-13 09:32 | NM ---
EXAMINATION TYPE: NM bone 3 phase DATE OF EXAM: 03/12/2023 COMPARISON: NONE CLINICAL INDICATION: Female, 77 years old with history of rt heel osteo; Triple phase bone scintigraphy was performed following the injection of 23.4 mCi Tc 99m MDP. Immedia te images and 5.25 hours post injection images acquired. FINDINGS: On the frontal view of the foot is unchanged. There is increased flow to the right heel. Increased soft tissue uptake to the right heel compatible cellulitis. Assessment for osteomyelitis is limited due to positioning. No obvious diagnostic evidence of osteomy elitis. IMPRESSION: See above.
--- NOTE | 2023-03-13 10:13 | P.PN ---
Subjective Progress Note Date: 03/13/23 Principal diagnosis: Pressure ulcers Patient seen and examined lying in bed resting comfortably. She has bilateral heel protectors on. No acute changes through the night. She is afebrile. Objective - Vital Signs Vital signs: Vital Signs Temp 98.4 F 03/13/23 07:12 Pulse 63 03/13/23 07:12 Resp 16 03/13/23 07:12 BP 128/66 03/13/23 07:12 Pulse Ox 97 03/13/23 07:12 FiO2 Intake & Output 03/12/23 03/13/23 03/13/23 18:59 06:59 18:59 Output Total 600 400 Balance -600 -400 Output: Urine 600 400 Other: Voiding Method External Catheter External Catheter # Voids 2 - Exam General appearance: The patient is alert, oriented, appears in no acute distress. HET: Head is normocephalic and atraumatic. Neck: Supple. Heart: Regular. Lungs: Equal expansion, normal respiratory effort. Abdomen: Soft, nondistended. Extremities: Bilateral lower extremities with palpable DP pulses. Offloading heel boots in place. Right foot with dressing clean dry and intact. Neurological: Alert and oriented. - Labs CBC & Chem 7: 03/12/23 08:36 03/12/23 08:36 Labs: Abnormal Lab Results - Last 24 Hours (Table) 03/12/23 03/12/23 03/12/23 Range/Units 08:36 08:36 11:41 RBC 3.64 L (4.10-5.20) X 10*6/uL Hgb 11.6 L (12.0-15.0) g/dL Hct 35.7 L (37.2-46.3) % MCV 98.1 H (80.0-97.0) FL Monocytes # 1.07 H (0.20-1.00) X 10*3/uL Creatinine 0.37 L (0.52-1.04) mg/dL POC Glucose (mg/dL) 286 H (70-110) mg/dL Calcium 8.3 L (8.4-10.2) mg/dL 03/12/23 03/12/23 Range/Units 16:38 20:22 RBC (4.10-5.20) X 10*6/uL Hgb (12.0-15.0) g/dL Hct (37.2-46.3) % MCV (80.0-97.0) FL Monocytes # (0.20-1.00) X 10*3/uL Creatinine (0.52-1.04) mg/dL POC Glucose (mg/dL) 263 H 226 H (70-110) mg/dL Calcium (8.4-10.2) mg/dL Microbiology - Last 24 Hours (Table) 03/09/23 13:00 Blood Culture - Preliminary Blood 03/09/23 13:15 Blood Culture - Preliminary Blood Assessment and Plan Assessment: 1. Right heel wound, right lower extremity wound 2. Multiple sclerosis Plan: 1. Continue with local wound care 2. Continue with offloading with soft Medical boots, heel protectors 3. No indication for any surgical intervention Thank you for this consultation. We will sign off at this time. The impression and plan of care has been dictated as directed. Dr. Curtis I performed a history and examination of this patient, discussed the same with the dictator. I agree with the dictator's note ,documented as a scribe. Any additional findings or plans will be noted.
[2023-03-13 11:52] LABS: Glucose,Whole Blood 251 mg/dL (70-110)
--- NOTE | 2023-03-13 16:23 | P.PN ---
Subjective Progress Note Date: 03/12/23 Principal diagnosis: Reason for follow-up is right heel wound and cellulitis Patient is a 77-year-old female with a past medical history significant for diabetes mellitus hypertension MS, osteoarthritis patient has been brought into the ER by the EMS for evaluation of nonhealing wound to the right heel and bleeding. Patient did have x-ray of the foot concerning for minimal cortical erosion of the anterior cortex did not mention the bones. On today's evaluation that is 03/12/2023, the patient continues to be afebrile patient is breathing comfortably on room air without need for supplemental oxygen the patient denies chest pain did have occasional cough no sputum production patient denies abdominal pain no nausea no vomiting and no diarrhea has been reported, patient denies any worsening pain to the right heel wound Patient did have white count of 8.50, creatinine is 0.37 local culture growing Staph aureus and gram-negative Objective - Vital Signs Vital signs: Vital Signs Temp 97.9 F 03/12/23 13:31 Pulse 68 03/12/23 13:31 Resp 16 03/12/23 13:31 BP 123/64 03/12/23 13:31 Pulse Ox 98 03/12/23 13:31 FiO2 Intake & Output 03/11/23 03/12/23 03/12/23 18:59 06:59 18:59 Output Total 1000 650 600 Balance -1000 -650 -600 Output: Urine 1000 650 600 Other: Voiding Method External Catheter External Catheter - Exam GENERAL DESCRIPTION: An elderly female lying in bed in no distress RESPIRATORY SYSTEM: Unlabored breathing , decreased breath sounds at bases HEART: S1 S2 regular rate and rhythm , ABDOMEN: Soft , no tenderness EXTREMITIES: Right heel wound with no slough tissue did have some bleeding patient also have a wound to the right lateral leg more likely pressure ulcer - Labs CBC & Chem 7: 03/12/23 08:36 03/12/23 08:36 Labs: Abnormal Lab Results - Last 24 Hours (Table) 03/11/23 03/11/23 03/12/23 Range/Units 16:18 19:59 08:36 RBC 3.64 L (4.10-5.20) X 10*6/uL Hgb 11.6 L (12.0-15.0) g/dL Hct 35.7 L (37.2-46.3) % MCV 98.1 H (80.0-97.0) FL Monocytes # 1.07 H (0.20-1.00) X 10*3/uL Creatinine (0.52-1.04) mg/dL POC Glucose (mg/dL) 163 H 235 H (70-110) mg/dL Calcium (8.4-10.2) mg/dL 03/12/23 03/12/23 Range/Units 08:36 11:41 RBC (4.10-5.20) X 10*6/uL Hgb (12.0-15.0) g/dL Hct (37.2-46.3) % MCV (80.0-97.0) FL Monocytes # (0.20-1.00) X 10*3/uL Creatinine 0.37 L (0.52-1.04) mg/dL POC Glucose (mg/dL) 286 H (70-110) mg/dL Calcium 8.3 L (8.4-10.2) mg/dL Microbiology - Last 24 Hours (Table) 03/09/23 13:06 Gram Stain - Final Foot - Left Wound Culture - Final Escherichia coli Staphylococcus aureus Enterococcus faecalis 03/09/23 13:00 Blood Culture - Preliminary Blood 03/09/23 13:15 Blood Culture - Preliminary Blood Assessment and Plan (1) Open wound of heel Current Visit: Yes Status: Acute Code(s): S91.309A - UNSPECIFIED OPEN WOUND, UNSPECIFIED FOOT, INITIAL ENCOUNTER SNOMED Code(s): 145062663 (2) Cellulitis of right heel Current Visit: Yes Status: Acute Code(s): L03.115 - CELLULITIS OF RIGHT LO WER LIMB SNOMED Code(s): 42942100 Plan: 1patient was in the hospital with worsening wound to the right heel area which is more likely a pressure ulcer unstageable at this time necrotic tissue and surrounding redness concerning for secondary cellulitis with the x-ray showing some cortical erosion however did not mention the bones where there was calcaneus, bone scan has been ordered and currently in progress 2-local culture growing Staph aureus, Enterococcus and E. coli that is resistant to Unasyn 3-local wound care will be switched over to dry Aquacel silver dressing change every 48 hour keep the area of the pressure 4-we will discontinue this and start the patient on Zosyn await bone scan to be completed Dictation was produced using Spot[employer] software. please excuse any grammatical, word or spelling errors. Time with Patient: Less than 30
--- NOTE | 2023-03-13 16:24 | P.PN ---
Subjective Progress Note Date: 03/13/23 Principal diagnosis: Reason for follow-up is right heel wound and cellulitis Patient is a 77-year-old female with a past medical history significant for diabetes mellitus hypertension MS, osteoarthritis patient has been brought into the ER by the EMS for evaluation of nonhealing wound to the right heel and bleeding. Patient did have x-ray of the foot concerning for minimal cortical erosion of the anterior cortex did not mention the bones. On today's evaluation that is 03/13/2023, the patient remains to be afebrile, the patient is breathing comfortably on room air and the patient denies any shortness of breath, the patient denies chest pain or any cough , patient denies any nausea/vomiting abdominal pain or diarrhea, the patient denies pain to the right heel wound Patient did have white count of 8.50, creatinine is 0.37 as of yesterday local culture growing Staph aureus Enterococcus and E. coli, bone scan was negative for osteomyelitis Objective - Vital Signs Vital signs: Vital Signs Temp 98.4 F 03/13/23 07:12 Pulse 63 03/13/23 07:12 Resp 16 03/13/23 07:12 BP 128/66 03/13/23 07:12 Pulse Ox 97 03/13/23 07:12 FiO2 Intake & Output 03/12/23 03/13/23 03/13/23 18:59 06:59 18:59 Intake Total 120 Output Total 600 400 400 Balance -600 -400 -280 Intake: Oral 120 Output: Urine 600 400 400 Other: Voiding Method External Catheter External Catheter # Voids 2 - Exam GENERAL DESCRIPTION: An elderly female lying in bed in no distress RESPIRATORY SYSTEM: Unlabored breathing , decreased breath sounds at bases HEART: S1 S2 regular rate and rhythm , ABDOMEN: Soft , no tenderness EXTREMITIES: Right heel wound with no slough tissue did have some bleeding patient also have a wound to the right lateral leg more likely pressure ulcer - Labs CBC & Chem 7: 03/12/23 08:36 03/12/23 08:36 Labs: Abnormal Lab Results - Last 24 Hours (Table) 03/12/23 03/12/23 03/13/23 Range/Units 16:38 20:22 11:51 POC Glucose (mg/dL) 263 H 226 H 251 H (70-110) mg/dL Microbiology - Last 24 Hours (Table) 03/09/23 13:00 Blood Culture - Preliminary Blood 03/09/23 13:15 Blood Culture - Preliminary Blood Assessment and Plan (1) Open wound of heel Current Visit: Yes Status: Acute Code(s): S91.309A - UNSPECIFIED OPEN WOUND, UNSPECIFIED FOOT, INITIAL ENCOUNTER SNOMED Code(s): 210792957 (2) Cellulitis of right heel Current Visit: Yes Status: Acute Code(s): L03.115 - CELLULITIS OF RIGHT LOWER LIMB SNOMED Code(s): 14328040 Plan: 1patient was in the hospital with worsening wound to the right heel area which is more likely a pressure ulcer unstageable at this time necrotic tissue and surrounding redness concerning for secondary cellulitis with the x-ray showing some cortical erosion however did not mention the bones where there was calcaneus, bone scan negative for osteomyelitis 2-local culture growing Staph aureus, Enterococcus and E. coli that is resistant to Unasyn 3-local wound care will be switched over to dry Aquacel silver dressing change every 48 hour keep the area of the pressure 4-patient to continue with the Zosyn hopefully finishing therapy with the Bact rim DS and Augmentin on discharge Dictation was produced using [employer] dictation software. please excuse any grammatical, word or spelling errors.
[2023-03-13 16:40] LABS: Glucose,Whole Blood 143 mg/dL (70-110)
--- NOTE | 2023-03-13 20:30 | P.PN ---
Subjective Progress Note Date: 03/13/23 Patient is seen on the medical floor today. She underwent bone scan today of the right heel revealing increased flow to the right heel with increased soft tissue uptake to the right heel compatible with cellulitis. Assessment for osteo is limited due to positioning. There is no obvious diagnostic evidence of osteomyelitis. Patient continues on IV zosyn. ID following. Vascular has no plans for surgical intervention at this time. Review of Systems Constitutional: Denied any fatigue denied any fever. Cardio vascular: denied any chest pain, palpitations Gastrointestinal: denied any nausea, vomiting, diarrhea Pulmonary: Denied any shortness of breath cough Neurologic denied any new focal deficits All inpatient medications were reviewed and appropriate changes in these medications as dictated in the interval history and assessment and plan. PHYSICAL EXAMINATION: GENERAL: The patient is alert and oriented x3, not in any acute distress. Well developed, well nourished. HEENT: Pupils are round and equally reacting to light. EOMI. No scleral icterus. No conjunctival pallor. Normocephalic, atraumatic. No pharyngeal erythema. No thyromegaly. CARDIOVASCULAR: S1 and S2 present. No murmurs, rubs, or gallops. PULMONARY: Chest is clear to auscultation, no wheezing or crackles. ABDOMEN: Soft, nontender, nondistended, normoactive bowel sounds. No palpable organomegaly. MUSCULOSKELETAL: No joint swelling or deformity. EXTREMITIES: No cyanosis, clubbing, or pedal edema. NEUROLOGICAL: Gross neurological examination did not reveal any focal deficits. SKIN: No rashes. Assessment and Plan -Acute right heel diabetic wound/diabetic ulcer with concern for osteomyelitis has undergone bone scan and remains on course of IV zosyn. Cultures showing enterococcus, E.Coli and staphylococcus. ID recommending oral antibiotics on discharge with bactrim DS and augmentin -Diabetes mellitus type 2 with hyperglycemia hemoglobin A1C 9.0. continue accuchecks ACHS and sliding scale insulin -Hypertension -Hx of MS and wheelchair bound at home GI prophylaxis Plan is to return home with homecare on discharge. Patient should be able to return home tomorrow with course of oral antibiotics. The impression and plan of care has been dictated by Анна Anthony, Nurse Practitioner as directed. Dr. Saroj MD I have performed a history and physical examination and medical decision making of this patient, discussed the same with the dictator, and agree with the dictators assessment and plan as written, documented as a scribe. Based on total visit time, I have performed more than 50% of this visit. Objective - Vital Signs Vital signs: Vital Signs Temp 98.4 F 03/13/23 07:12 Pulse 63 03/13/23 07:12 Resp 16 03/13/23 07:12 BP 128/66 03/13/23 07:12 Pulse Ox 97 03/13/23 07:12 FiO2 Intake & Output 03/12/23 03/13/23 03/13/23 18:59 06:59 18:59 Intake Total 120 Output Total 600 400 400 Balance -600 -400 -280 Intake: Oral 120 Output: Urine 600 400 400 Other: Voiding Method External Catheter External Catheter # Voids 2 - Labs CBC & Chem 7: 03/12/23 08:36 03/12/23 08:36 Labs: Abnormal Lab Results - Last 24 Hours (Table) 03/12/23 03/12/23 03/12/23 Range/Units 08:36 08:36 11:41 RBC 3.64 L (4.10-5.20) X 10*6/uL Hgb 11.6 L (12.0-15.0) g/dL Hct 35.7 L (37.2-46.3) % MCV 98.1 H (80.0-97.0) FL Monocytes # 1.07 H (0.20-1.00) X 10*3/uL Creatinine 0.37 L (0.52-1.04) mg/dL POC Glucose (mg/dL) 286 H (70-110) mg/dL Calcium 8.3 L (8.4-10.2) mg/dL 03/12/23 03/12/23 Range/Units 16:38 20:22 RBC (4.10-5.20) X 10*6/uL Hgb (12.0-15.0) g/dL Hct (37.2-46.3) % MCV (80.0-97.0) FL Monocytes # (0.20-1.00) X 10*3/uL Creatinine (0.52-1.04) mg/dL POC Glucose (mg/dL) 263 H 226 H (70-110) mg/dL Calcium (8.4-10.2) mg/dL Microbiology - Last 24 Hours (Table) 03/09/23 13:00 Blood Culture - Preliminary Blood 03/09/23 13:15 Blood Culture - Preliminary Blood Assessment and Plan Time with Patient: Less than 30
[2023-03-13 21:09] LABS: Glucose,Whole Blood 271 mg/dL (70-110)
[2023-03-13] MEDS: INSULIN DETEMIR (LEVEMIR) 100 UNIT/ML SYR SQ SCH (21:25)
[2023-03-14] MEDS: BACLOFEN 10 MG TAB PO PRN (05:26)
[2023-03-14 05:27] LABS: Glucose,Whole Blood 88 mg/dL (70-110)
[2023-03-14] MEDS: INSULIN ASPART (NovoLOG) 100 UNIT/ML VIAL SQ SCH ×2 (05:32→11:18)
[2023-03-14 07:34] VITALS: BP 130/65; PULSE 72; RESP 16; TEMP 97.7
[2023-03-14] MEDS: CYANOCOBALAMIN 500 MCG TAB PO SCH (08:32)
[2023-03-14] MEDS: PIPERACILLIN-TAZOBACTAM 3.375 GM in SODIUM CHLORIDE 0.9% 100 ML IVPB SCH (08:32)
[2023-03-14] MEDS: HEPARIN SODIUM,PORCINE 5,000 UNIT/ML 1 ML VIAL SQ SCH (08:32)
[2023-03-14] MEDS: ASPIRIN 81 MG PO SCH (08:32)
[2023-03-14] MEDS: DOCUSATE 100 MG CAP PO SCH (08:32)
[2023-03-14] MEDS: ATORVASTATIN 10 MG TAB PO SCH (08:32)
[2023-03-14 11:13] LABS: Glucose,Whole Blood 119 mg/dL (70-110)
--- NOTE | 2023-03-14 12:32 | P.PN ---
Subjective Progress Note Date: 03/14/23 Principal diagnosis: Reason for follow-up is right heel wound and cellulitis Patient is a 77-year-old female with a past medical history significant for diabetes mellitus hypertension MS, osteoarthritis patient has been brought into the ER by the EMS for evaluation of nonhealing wound to the right heel and bleeding. Patient did have x-ray of the foot concerning for minimal cortical erosion of the anterior cortex did not mention the bones. On today's evaluation that is 03/14/2023, the patient continues to be afebrile patient is breathing comfortably on room air, no need for supplemental oxygen, patient denies any chest pain or cough no nausea no vomiting and no diarrhea has been reported, patient denies any pain to the right heel wound Patient did have white count of 8.50, creatinine is 0.37 as of 03/12/2023 no lab draw today local culture growing Staph aureus Enterococcus and E. coli, bone scan was negative for osteomyelitis Objective - Vital Signs Vital signs: Vital Signs Temp 97.7 F 03/14/23 07:27 Pulse 72 03/14/23 07:27 Resp 16 03/14/23 07:27 BP 130/65 03/14/23 07:27 Pulse Ox 98 03/14/23 07:27 FiO2 Intake & Output 03/13/23 03/14/23 03/14/23 18:59 06:59 18:59 Intake Total 120 Output Total 2000 1200 Balance -1880 -1200 Weight 77.111 kg Intake: Oral 120 Output: Urine 2000 1200 Other: Voiding Method External Catheter # Voids 1 - Exam GENERAL DESCRIPTION: An elderly female lying in bed in no distress RESPIRATORY SYSTEM: Unlabored breathing , decreased breath sounds at bases HEART: S1 S2 regular rate and rhythm , ABDOMEN: Soft , no tenderness EXTREMITIES: Right heel wound with no slough tissue did have some bleeding patient also have a wound to the right lateral leg more likely pressure ulcer - Labs CBC & Chem 7: 03/12/23 08:36 03/12/23 08:36 Labs: Abnormal Lab Results - Last 24 Hours (Table) 03/13/23 03/13/23 03/14/23 Range/Units 16:39 21:08 11:12 POC Glucose (mg/dL) 143 H 271 H 119 H (70-110) mg/dL Assessment and Plan (1) Open wound of heel Current Visit: Yes Status: Acute Code(s): S91.309A - UNSPECIFIED OPEN WOUND, UNSPECIFIED FOOT, INITIAL ENCOUNTER SNOMED Code(s): 828827658 (2) Cellulitis of right heel Current Visit: Yes Status: Acute Code(s): L03.115 - CELLULITIS OF RIGHT LOWER LIMB SNOMED Code(s): 94379293 Plan: 1patient was in the hospital with worsening wound to the right heel area which is more likely a pressure ulcer unstageable at this time necrotic tissue and surrounding redness concerning for secondary cellulitis with the x-ray showing some cortical erosion however did not mention the bones where there was calcaneus, bone scan negative for osteomyelitis 2-local culture growing Staph aureus, Enterococcus and E. coli that is resistant to Unasyn 3-local wound care to continue with dry Aquacel silver dressing change every 48 hour keep the area of the pressure 4-patient to continue with the Zosyn with the plan to finish therapy with with the Bactrim DS and Augmentin x 7 days on discharge, discussed with the [employer] for admitting team working on discharge Dictation was produced using [email or web address] dictation software. please excuse any grammatical, word or spelling errors. Time with Patient: Less than 30
--- NOTE | 2023-03-17 11:15 | P.DS ---
Providers Date of admission: 03/10/23 14:05 Attending physician: Lester Nava Consults: 03/09/23 14:59 Consult Physician Stat Consulting Provider: Xi Florez Consult Reason/Comments: Osteomyelitis Do you want consulting provider notified?: Yes Primary care physician: Stated None Hospital Course: Final Diagnosis -Acute right heel diabetic wound/diabetic ulcer with concern for osteomyelitis. Cultures showing E. Coli, staphylococcus aureus and enterococcus faecalis -Diabetes mellitus type 2 with hyperglycemia hemoglobin A1C 9.0 -Hypertension -Hx of MS and wheelchair bound at home Discharge Disposition Patient is stable for discharge home. ID recommending 7 days of oral antibiotic therapy with augmentin and bactrim. Recommending to see ID and vascular surgery on an outpatient basis for follow up. Patient to see Her PCP Dr. Caballero in 1 to 2 days. Repeat labs in 2 to 3 days. Hospital Course Patient is a 77-year-old female with a past medical history significant for diabetes mellitus hypertension MS, osteoarthritis patient has been brought into the ER by the EMS when they were called into the hospital for the patient having a wound on her right heel apparently this has been getting worse for the last 1 week patient has complaining of increasing pain swelling redness to the right heel. Patient came in for evaluation initial work up shows creatinine 0.52 and white count of 9.9 she was mildly tachycardic. Patient had an xray of her foot with no acute fracture and minimal corticol he underwent bone scan today of the right heel revealing increased flow to the right heel with increased soft tissue uptake to the right heel compatible with cellulitis. Assessment for osteo is limited due to positioning. There is no obvious diagnostic evidence of osteomyelitis. Patient continues on IV zosyn. ID following. Vascular has no plans for surgical intervention at this time. Cultures showing enterococcus, E.Coli and staphylococcus. ID recommending oral antibiotics on discharge with bactrim DS and augmentin for 7 weeks total. WBC has remained normal, no chest pain no shorntess of breath. At baseline, reporting minimal pain to the heel and has been offloading the pressure with s upportive boots. Recommended to continue this at home. Cleared for discharge home. Please see medication reconciliation for a list of current medications. Thank you for allowing us to participate in the care of this patient. The impression and plan of care has been dictated by Анна Anthony, Nurse Practitioner as directed. Dr. Saroj MD I have performed a history and physical examination and medical decision making of this patient, discussed the same with the dictator, and agree with the dictators assessment and plan as written, documented as a scribe. Based on total visit time, I have performed more than 50% of this visit. Patient Condition at Discharge: Fair Plan - Discharge Summary Discharge Rx Participant: No New Discharge Prescriptions: New Sulfamethox-Tmp 800-160Mg [Bactrim DS 800-160 mg] 1 tab PO Q12HR 7 Days #14 tab Amoxic-Pot Clav 875-125Mg [Augmentin 875-125] 1 tab PO Q12HR 7 Days #14 tab Continue Baclofen [Lioresal] 20 mg PO QID PRN PRN Reason: Muscle Spasm Atorvastatin [Lipitor] 10 mg PO DAILY Cyanocobalamin (Vitamin B-12) [Vitamin B-12] 1,000 mcg PO DAILY Aspirin EC [Ecotrin Low Dose] 81 mg PO DAILY Docusate [Colace] 100 mg PO DAILY HYDROcodone/APAP 5-325MG [[place] 5-325] 1 tab PO Q6H PRN PRN Reason: Pain Insulin Glargine,Hum.rec.anlog [Lantus Solostar Pen] 18 units SQ HS PRN PRN Reason: High BS Discharge Medication List Baclofen [Lioresal] 20 mg PO QID PRN 05/13/15 [History] Aspirin EC [Ecotrin Low Dose] 81 mg PO DAILY 03/09/23 [History] Atorvastatin [Lipitor] 10 mg PO DAILY 03/09/23 [History] Cyanocobalamin (Vitamin B-12) [Vitamin B-12] 1,000 mcg PO DAILY 03/09/23 [History] Docusate [Colace] 100 mg PO DAILY 03/09/23 [History] HYDROcodone/APAP 5-325MG [[place] 5-325] 1 tab PO Q6H PRN 03/09/23 [History] Insulin Glargine,Hum.rec.anlog [Lantus Solostar Pen] 18 units SQ HS PRN 03/09/23 [History] Amoxic-Pot Clav 875-125Mg [Augmentin 875-125] 1 tab PO Q12HR 7 Days #14 tab 03/14/23 [Rx] Sulfamethox-Tmp 800-160Mg [Bactrim DS 800-160 mg] 1 tab PO Q12HR 7 Days #14 tab 03/14/23 [Rx] Follow up Appointment(s)/Referral(s): Marco Antonio Caballero MD [REFERRING] - 1-2 Days (No answer please call ) [facility] [NON-STAFF] - 1-2 Days ([facility] will call you to schedule your in home nursing and aide visits. ) Sonia Musa DO [STAFF PHYSICIAN] - [facility] [NON-STAFF] - 03/23/23 8:00 am Xi Florez MD [STAFF PHYSICIAN] - 1 Week Ambulatory/Diagnostic Orders: Basic Metabolic Panel [LAB.AMB] Location: None Selected Complete Blood Count w/diff [LAB.AMB] Time Frame: 3 Days, Location: None Selected Patient Instructions/Handouts: Osteomyelitis (DC) Activity/Diet/Wound Care/Special Instructions: PCP: Gonzalo PAK - [phone] - make appointment for 1-2 days Discharge Disposition: HOME WITH HOME HEALTH SERVICES
== END 2023-03-14 16:59 | disposition home health service (06) | DRG 638 ==
LOC: EC 12:35 → 4SSUR 14:34 → OBSVTOIN 03-10 14:05
PROVIDERS: ADMIT Hospitalist; ATTEND Hospitalist
DX: E11.621 Type 2 diabetes mellitus with foot ulcer (principal); L03.116 Cellulitis of left lower limb; N39.0 Urinary tract infection, site not specified; L40.9 Psoriasis, unspecified; S80.829A Blister (nonthermal), unspecified lower leg, initial encounter; E11.628 Type 2 diabetes mellitus with other skin complications; M19.90 Unspecified osteoarthritis, unspecified site; B96.20 Unspecified Escherichia coli [E. coli] as the cause of diseases classified elsewhere; B95.2 Enterococcus as the cause of diseases classified elsewhere; Z79.4 Long term (current) use of insulin; L89.610 Pressure ulcer of right heel, unstageable; G35 Multiple sclerosis; I10 Essential (primary) hypertension; K76.0 Fatty (change of) liver, not elsewhere classified; M81.0 Age-related osteoporosis without current pathological fracture; N31.2 Flaccid neuropathic bladder, not elsewhere classified; Z79.82 Long term (current) use of aspirin; Z79.899 Other long term (current) drug therapy; Z82.49 Family history of ischemic heart disease and other diseases of the circulatory system; Z87.01 Personal history of pneumonia (recurrent); Z99.3 Dependence on wheelchair; Z28.310 Unvaccinated for COVID-19
CPT/HCPCS: 36415; 71045; 78315; 80048; 80053; 83036; 83605; 85025; 85027; 85652; 86140; 87040; 87070; 87077; 87186; 87205; 96361; 96365; 96366; 96375; 99285